=== PATIENT | female | born 1975 | race Caucasian/White ===

== ENCOUNTER → 2023-11-26 14:12 | Outpatient (REF) | payer OTHER, SELFPAY | LOC: CLAB 14:12 | PROVIDERS: ATTENDING PHYSICIAN Obstetrics & Gynecology | DX: N90.1 Moderate vulvar dysplasia (principal) | CPT/HCPCS: 88305; 88341; 88342 ==

== ENCOUNTER → 2023-12-31 06:22 | Day surgery (SDC) | payer OTHER, SELFPAY | LOC: GI 06:22 | PROVIDERS: ATTENDING PHYSICIAN Internal Medicine Gastroenterology | DX: Z12.11 Encounter for screening for malignant neoplasm of colon (principal); D12.2 Benign neoplasm of ascending colon | CPT/HCPCS: 45385; 88305 ==

== ENCOUNTER → 2024-04-07 16:02 | Outpatient (REF) | payer OTHER, SELFPAY | LOC: WDC 16:02 | PROVIDERS: ATTENDING PHYSICIAN Obstetrics & Gynecology Gynecology; FAMILY PHYSICIAN Internal Medicine | DX: Z12.31 Encounter for screening mammogram for malignant neoplasm of breast (principal) | CPT/HCPCS: 77063; 77067 ==

== ENCOUNTER → 2025-04-11 16:34 | Outpatient (REF) | payer OTHER, SELFPAY | LOC: WDC 16:34 | PROVIDERS: ATTENDING PHYSICIAN Obstetrics & Gynecology Gynecology; FAMILY PHYSICIAN Internal Medicine | DX: Z12.31 Encounter for screening mammogram for malignant neoplasm of breast (principal) | CPT/HCPCS: 77063; 77067 ==